=== PATIENT | female | born 1980 | race Caucasian/White ===

== ENCOUNTER 2021-11-27 16:46 | Emergency (ER) | payer OTHER ==
[~2021-11-27] VITALS: Ht 167.6 cm; Wt 59.9 kg
--- NOTE | 2021-11-27 17:01 | NUR ---
BIBSPOUSE C/O LOWER ABD PAIN & VAGINAL SPOTTING, PT IS 7 WKS PER PT. VITALS ARE WITH NORMAL LIMITS, NO RESPIRATORY DISTRESS NOTED.
[2021-11-27 17:41] LABS: BASOPHILS % (AUTO) 0.4 % (0.0-2.0); EOSINOPHILS % (AUTO) 0.6 % (0.0-6.0); HEMATOCRIT 36 % (33-45); HEMOGLOBIN 12.3 g/dL (11.5-14.8); LYMPHOCYTES # (AUTO) 1.7 K/uL (0.8-4.8); MEAN CORPUSCULAR HGB CONC 34 g/dl (31.0-36.0); MEAN CORPUSCULAR VOLUME 90 fL (82-100); MONOCYTES # (AUTO) 0.4 K/uL (0.1-1.30); MONOCYTES % (AUTO) 5.3 % (2.0-12.0); NEUTROPHILS # (AUTO) 5.3 K/uL (1.8-8.9); NEUTROPHILS % (AUTO) 70.7 % (43.0-81.0); PLATELET COUNT (AUTO) 226 K/uL (150-450); RED BLOOD CELL COUNT(AUTO) 3.99 MIL/uL (4.0-5.2); WHITE BLOOD COUNT (AUTO) 7.5 K/uL (4.3-11.0)
[2021-11-27 17:48] LABS: BILIRUBIN,URINE NEGATIVE (NEGATIVE); COLOR,URINE YELLOW (YELLOW); LEUKOCYTE ESTERASE ,URINE SMALL (NEGATIVE); NITRITE, URINE NEGATIVE (NEGATIVE); PH,URINE 6.5 (5.0-8.0); PROTEIN,URINE NEGATIVE (NEGATIVE); UGLUCOSE NEGATIVE (NEGATIVE); UROBILINOGEN,URINE 0.2 EU/dL (0.2)
[2021-11-27 18:03] LABS: BACTERIA,URINE None seen /HPF (None Seen); SQUAMOUS EPITHELIAL CELL,UR Few /HPF (None Seen)
--- NOTE | 2021-11-27 18:05 | NUR ---
ULTRASOUND AT BEDSIDE.
[2021-11-27 18:11] LABS: CALCIUM, SERUM 8.7 mg/dL (8.5-10.1); CREATININE 0.6 mg/dL (0.6-1.3); POTASSIUM 3.3 mmol/L (3.5-5.1)
[2021-11-27 18:39] LABS: ALBUMIN 4.3 g/dL (3.4-5.0); BILIRUBIN,DIRECT 0.1 mg/dL (0.0-0.2); BILIRUBIN,TOTAL 0.5 mg/dL (0.2-1.0); TOTAL PROTEIN, SERUM 7.4 g/dL (6.4-8.2)
--- NOTE | 2021-11-27 19:39 | NUR ---
PER PATIENT TOOK RHOGAM 3 WEEKS AGO. NOTIFIED [employer] AND [employer]
[2021-11-27 20:08] VITALS: BP 111/71
--- NOTE | 2021-11-27 20:08 | NUR ---
Patient discharged to home in stable condition. Written and verbal after care instructions given. Patient verbalizes understanding of instruction. PT ambulatory with a steady gait.
== END 2021-11-27 20:09 | disposition home or self-care (01) ==
LOC: ER 16:46
DX: O20.0 Threatened abortion (principal); Z3A.01 Less than 8 weeks gestation of pregnancy
CPT/HCPCS: 36415; 76805-TC; 80048-TC; 80076-TC; 81001; 84702-TC; 84703-TC; 85025-TC; 85730-TC; 87086-TC